=== PATIENT | female | born 1955 | race Caucasian/White ===

== ENCOUNTER 2025-08-15 13:00 | Emergency (ER) | payer OTHER ==
[~2025-08-15] VITALS: Ht 170.2 cm; Wt 90.3 kg
[2025-08-15] MEDS ORDERED: Ondansetron Hydrochloride 4 MG/2 ML VIAL IV ONE (13:35)
[2025-08-15] MEDS ORDERED: SODIUM CHLORIDE 0.9% 1,000 ML IV ONE (13:35)
[2025-08-15] MEDS ORDERED: diphenhydrAMINE hydrochloride 50 MG/ML VIAL IV ONE (13:35)
[2025-08-15 13:52] LABS: BASO # 0.0 10*3/uL (0.0-0.1); BASO % 0.3 % (0.0-1.0); EOS # 0.1 10*3/uL (0.0-0.4); EOS % 2.0 % (1.0-4.0); MEAN CELL VOLUME 83.9 fl (81.0-99.0); MEAN CORPUSCULAR HGB 25.9 pg (27.0-31.0); MEAN PLATELET VOLUME 9.9 fl (9.6-12.3); MONO # 0.4 10*3/uL (0.1-1.0); MONO % 5.5 % (3.0-9.0); NEUT # 4.2 10*3/uL (2.3-7.9); NEUT % 65.6 % (47.0-73.0); NUCLEATED RED BLOOD CELL 0.0 % (0.0-0.0); NUCLEATED RED BLOOD CELL 0.0 10*3/uL (0.0-0.0); PLATELET COUNT AUTOMATED 266 10*3/uL (130-400); RED CELL DISTRI WIDTH 16.5 % (0-14.5)
[2025-08-15 14:13] LABS: BUN 18 mg/dl (9-23)
[2025-08-15 14:22] LABS: SGPT/ALT < 7 U/L (5-49)
[2025-08-15 14:37] LABS: BILIRUBIN Negative (Negative); BLOOD Negative (Negative); CLARITY Clear (Clear); COLOR Yellow (Yellow); KETONE Negative (Negative); LEUKO ESTERASE Negative (Negative); NITRITE Negative (Negative); PH 5.5 (4.5-8.0); SPECIFIC GRAVITY 1.010 (1.001-1.030); UROBILINOGEN 0.2 E.U./dl (0.0-1.0)
[2025-08-15 14:58] LABS: WBC 0-2 wbc/hpf (0-5)
[2025-08-15 14:59] LABS: BACTERIA 1+
[2025-08-15] MEDS ORDERED: Ondansetron4 MG PO (15:33)
== END 2025-08-15 15:37 | disposition home or self-care (01) ==
LOC: ED 13:00
PROVIDERS: Nurse Practitioner Family
DX: S09.90XA Unspecified injury of head, initial encounter (principal); K52.9 Noninfective gastroenteritis and colitis, unspecified; G43.909 Migraine, unspecified, not intractable, without status migrainosus; Z98.84 Bariatric surgery status; W51.XXXA Accidental striking against or bumped into by another person, initial encounter; Y93.89 Activity, other specified; Y92.89 Other specified places as the place of occurrence of the external cause; Y99.8 Other external cause status

== ENCOUNTER 2025-08-31 12:01 | Emergency (ER) | payer OTHER ==
[~2025-08-31] VITALS: Wt 92.1 kg
[~2025-08-31 12:01] MED LIST: Ondansetron4 MG PO
[2025-08-31] MEDS ORDERED: SODIUM CHLORIDE 0.9% 1,000 ML IV ONE (12:45)
[2025-08-31] MEDS ORDERED: diphenhydrAMINE hydrochloride 50 MG/ML VIAL IV ONE (12:45)
[2025-08-31] MEDS ORDERED: Metoclopramide Hydrochloride 10 MG/2 ML VIAL IV ONE (12:45)
[2025-08-31] MEDS ORDERED: METHOCARBAMOL500 M1 PO (14:36)
[2025-09-04] MEDS ORDERED: MULTIVITAMINS1 EAC6 PO (11:17)
[2025-09-04] MEDS ORDERED: OMEPRAZOLE40 MG PO (11:17)
[2025-09-06] MEDS ORDERED: MIRTAZAPINE15 M2 PO (20:00)
[2025-09-06] MEDS ORDERED: VITAMIN D350 MCG PO (20:00)
[2025-09-07] MEDS ORDERED: HYDROXYZINE PAM25 M1 PO (07:22)
== END 2025-08-31 14:41 | disposition home or self-care (01) ==
LOC: ED 12:01
DX: S33.5XXA Sprain of ligaments of lumbar spine, initial encounter (principal); G43.909 Migraine, unspecified, not intractable, without status migrainosus; W18.39XA Other fall on same level, initial encounter; Y93.89 Activity, other specified; Y92.89 Other specified places as the place of occurrence of the external cause; Y99.8 Other external cause status

== ENCOUNTER 2025-09-08 18:28 | Emergency (ER) | payer OTHER ==
[~2025-09-08 18:28] MED LIST changes: +HYDROXYZINE PAM25 M1 PO; +METHOCARBAMOL500 M1 PO; +MIRTAZAPINE15 M2 PO; +MULTIVITAMINS1 EAC6 PO; +OMEPRAZOLE40 MG PO; +VITAMIN D350 MCG PO
[2025-09-08] MEDS ORDERED: CALCIUM (TUMS) 500MG PO ONE (18:55)
[2025-09-08 19:00] LABS: BASO # 0.0 10*3/uL (0.0-0.1); BASO % 0.6 % (0.0-1.0); EOS # 0.0 10*3/uL (0.0-0.4); EOS % 0.3 % (1.0-4.0); MEAN CELL VOLUME 80.6 fl (81.0-99.0); MEAN CORPUSCULAR HGB 25.5 pg (27.0-31.0); MEAN PLATELET VOLUME 10.3 fl (9.6-12.3); MONO # 0.4 10*3/uL (0.1-1.0); MONO % 6.0 % (3.0-9.0); NEUT # 4.6 10*3/uL (2.3-7.9); NEUT % 71.0 % (47.0-73.0); NUCLEATED RED BLOOD CELL 0.0 % (0.0-0.0); NUCLEATED RED BLOOD CELL 0.0 10*3/uL (0.0-0.0); PLATELET COUNT AUTOMATED 270 10*3/uL (130-400); RED CELL DISTRI WIDTH 17.0 % (0-14.5)
[2025-09-08 19:23] LABS: BUN 23 mg/dl (9-23); SGPT/ALT 8 U/L (5-49)
[2025-09-08 19:27] LABS: ETHYL ALCOHOL < 3.0 mg/dl (<3)
[2025-09-08 19:28] LABS: BILIRUBIN Negative (Negative); BLOOD Negative (Negative); CLARITY Cloudy (Clear); COLOR Dark Yellow (Yellow); KETONE 2+ (Negative); LEUKO ESTERASE Trace (Negative); NITRITE Negative (Negative); PH 5.5 (4.5-8.0); SPECIFIC GRAVITY >= 1.030 (1.001-1.030); UROBILINOGEN 1.0 E.U./dl (0.0-1.0)
[2025-09-08 19:35] LABS: URINE AMPHETAMINES Negative (1000ng/ml); URINE BARBITURATES Negative (200ng/ml); URINE BENZODIAZEPINES Negative (200ng/ml); URINE CANNABINOIDS (THC) Positive (50ng/ml); URINE COCAINE Negative (300ng/ml); URINE METHADONE Negative (300ng/ml); URINE OPIATES Negative (300ng/ml); URINE PHENCYCLIDINE Negative (25ng/ml)
[2025-09-08 20:03] LABS: BACTERIA 1+; MUCOUS 2+
== END 2025-09-09 10:11 | disposition home or self-care (01) ==
LOC: ED 18:28
PROVIDERS: Emergency Medicine
DX: F43.20 Adjustment disorder, unspecified (principal); F41.9 Anxiety disorder, unspecified; I10 Essential (primary) hypertension; F32.A Depression, unspecified; G43.909 Migraine, unspecified, not intractable, without status migrainosus; F90.9 Attention-deficit hyperactivity disorder, unspecified type; Z98.84 Bariatric surgery status; Z90.710 Acquired absence of both cervix and uterus